=== PATIENT | male | born 1950 | race Caucasian/White ===

== ENCOUNTER 2017-09-18 05:07 | Day surgery (SDC) | payer MEDICARE ==
[2017-09-16 10:13] LABS: BASOPHILS % (AUTO) 0.4 % (0-1); EOSINOPHILS # (AUTO) 0.2 X10'3 (0-0.9); EOSINOPHILS % (AUTO) 2.1 % (0-6); HEMATOCRIT 40.9 % (42.0-52.0); HEMOGLOBIN 13.7 g/dl (14.0-17.9); LYMPHOCYTES # (AUTO) 2.2 X10'3 (1.1-4.8); LYMPHOCYTES % (AUTO) 24.3 % (21-51); MEAN CORPUSCULAR HEMOGLOBIN 29.8 PG (27.0-31.0); MEAN CORPUSCULAR HGB CONC 33.5 % (33.0-36.5); MEAN PLATELET VOLUME 8.9 FL (7.4-10.4); MONOCYTES # (AUTO) 0.6 X10'3 (0-0.9); MONOCYTES % (AUTO) 6.2 % (2-12); PLATELET COUNT 180 X10'3 (140-440); RED CELL DISTRIBUTION WIDTH 13.7 % (11.5-14.5)
[2017-09-16 10:23] LABS: ALBUMIN 3.7 G/DL (3.4-5.0); ANION GAP 8 (8-16); BLOOD UREA NITROGEN 13 MG/DL (7-18); CALCIUM 8.9 MG/DL (8.5-10.1); CHLORIDE 106 MMOL/L (99-107); GLUCOSE 105 MG/DL (70-104); POTASSIUM 4.3 MMOL/L (3.5-5.1); SODIUM 142 MMOL/L (135-145); TOTAL CARBON DIOXIDE 28.5 MMOL/L (24-32); eGFR 75 ML/MIN
[2017-09-16 10:24] LABS: PARTIAL THROMBOPLASTIN TIME 28 SECONDS (22-32); PROTHROMBIN TIME 10.7 SECONDS (9.0-12.0)
[~2017-09-18] VITALS: Ht 188 cm; Wt 136.4 kg
[2017-09-18] VITALS (11 sets, daily range): BP systolic 96–128; BP diastolic 44–67
[2017-09-18] MEDS ORDERED: normal saline 1000ml 1,000 ML IV ONE (05:30)
[2017-09-18] MEDS ORDERED: LORazepam 0.5 MG tablet PO ONE (05:35)
[2017-09-18] MEDS ORDERED: diphenhydrAMINE 25mg capsule PO ONE (05:35)
[2017-09-18] MEDS ORDERED: PRAV40TA3 PO (05:58)
[2017-09-18] MEDS ORDERED: LANS30CA56 PO (05:58)
[2017-09-18] MEDS ORDERED: ASPI81TA52 PO (05:58)
[2017-09-18] MEDS ORDERED: DOXA1TAB2 PO (05:58)
[2017-09-18] MEDS ORDERED: LISI40TA4 PO (05:58)
[2017-09-18] MEDS ORDERED: midazolam 2 mg/2 ml injection ONE (06:00)
[2017-09-18] MEDS ORDERED: fentaNYL/PF 50MCG/1 ML 2ML syringe ONE (06:00)
[2017-09-18] MEDS ORDERED: LIDOcaine 1%/PF (10mg/ml) 5ml vial ONE (06:01)
[2017-09-18] MEDS ORDERED: iohexol 350MG/ML 100ml bottle IV ONE (06:01)
[2017-09-18] MEDS ORDERED: proCHLORperazine 10 MG/2 ml inj IV PRN (08:25)
[2017-09-18] MEDS ORDERED: OXAZEpam 15mg capsule PO PRN (08:25)
[2017-09-18] MEDS ORDERED: ondansetron/PF 4mg/2ml inj IV PRN (08:25)
== END 2017-09-18 10:30 | disposition home or self-care (01) ==
LOC: SSTAY O 05:07
PROVIDERS: ATTEND Internal Medicine Interventional Cardiology
DX: I25.10 Atherosclerotic heart disease of native coronary artery without angina pectoris (principal); I10 Essential (primary) hypertension; E66.9 Obesity, unspecified; G47.10 Hypersomnia, unspecified; E78.4 Other hyperlipidemia; I65.23 Occlusion and stenosis of bilateral carotid arteries; F17.220 Nicotine dependence, chewing tobacco, uncomplicated; Z82.49 Family history of ischemic heart disease and other diseases of the circulatory system; Z79.82 Long term (current) use of aspirin; Z68.38 Body mass index [BMI] 38.0-38.9, adult
CPT/HCPCS: 36415; 80048; 85025; 85610; 85730; 93458; 99152; A6257; C1769; J1644; J2001; J2250; J3010; J7030; Q0163; Q9967; A4620

== ENCOUNTER 2021-12-26 14:27 | Day surgery (SDC) | payer MEDICARE ==
[2021-12-21 10:17] LABS: ALBUMIN 3.4 G/DL (3.4-5.0); ANION GAP 6 (8-16); BLOOD UREA NITROGEN 13 MG/DL (7-18); BUN/CREATININE RATIO 14.6 (5.4-32.0); CALCIUM 8.9 MG/DL (8.5-10.1); CHLORIDE 104 MMOL/L (99-107); CREATININE 0.89 MG/DL (0.60-1.10); GLUCOSE 92 MG/DL (70-104); POTASSIUM 4.2 MMOL/L (3.5-5.1); SODIUM 139 MMOL/L (135-145); eGFR 84 ML/MIN
[2021-12-21 10:20] LABS: APTT 30 SECONDS (22-32)
[2021-12-21 10:26] LABS: BASOPHILS # (AUTO) 0.1 X10'3 (0-0.2); BASOPHILS % (AUTO) 0.7 % (0-1); EOSINOPHILS # (AUTO) 0.2 X10'3 (0-0.9); EOSINOPHILS % (AUTO) 1.7 % (0-6); HEMATOCRIT 41.5 % (42.0-52.0); LYMPHOCYTES # (AUTO) 2.6 X10'3 (1.1-4.8); LYMPHOCYTES % (AUTO) 26.8 % (21-51); MEAN CORPUSCULAR HGB CONC 33.7 g/dL (33.0-36.5); MEAN CORPUSCULAR VOLUME 88.9 FL (78-98); MEAN PLATELET VOLUME 9.8 FL (7.4-10.4); MONOCYTES # (AUTO) 0.7 X10'3 (0-0.9); MONOCYTES % (AUTO) 7.1 % (2-12); NEUTROPHILS # (AUTO) 6.2 X10'3 (1.8-7.7); NEUTROPHILS % (AUTO) 63.7 % (42-75); PLATELET COUNT 184 X10'3 (140-440); RED BLOOD COUNT 4.67 X10'6 (4.70-6.10); RED CELL DISTRIBUTION WIDTH 14.1 % (11.5-14.5); WHITE BLOOD COUNT 9.8 X10'3 (4.5-11.0)
[2021-12-26] VITALS (12 sets, daily range): BP systolic 102–142; BP diastolic 42–77
[~2021-12-26] VITALS: Ht 188 cm; Wt 140.6 kg
[~2021-12-26 14:27] MED LIST: ASPI81TA52 PO; DOXA1TAB2 PO; LANS30CA56 PO; LISI40TA13 PO; PRAV40TA3 PO
[2021-12-26] MEDS ORDERED: LIDOcaine/PRILOcaine 5gm cream TP ONE (14:35)
[2021-12-26] MEDS ORDERED: LORazepam 0.5 MG tablet PO PRN (14:45)
[2021-12-26] MEDS ORDERED: diphenhydrAMINE 25mg capsule PO PRN (14:45)
[2021-12-26] MEDS ORDERED: normal saline 1,000 ML IV SCH (14:45)
[2021-12-26] MEDS ORDERED: ROSU40TA PO (14:46)
[2021-12-26] MEDS ORDERED: fentaNYL/PF 50MCG/1 ML 2ML syringe ONE (14:52)
[2021-12-26] MEDS ORDERED: nitroGLYCERIN-Tridil 50MG/D5W 250 ML IV ONE (14:52)
[2021-12-26] MEDS ORDERED: heparin 1,000unit/ml 10ml vial 10 ML ONE (14:52)
[2021-12-26] MEDS ORDERED: verapamil 2.5 mg/ml inj IV ONE (14:52)
[2021-12-26] MEDS ORDERED: iohexol 350MG/ML 100ml bottle IV ONE (14:52)
[2021-12-26] MEDS ORDERED: LIDOcaine 1% (10mg/ml)w/preservative inj. 20ml MDV ONE (14:52)
[2021-12-26] MEDS ORDERED: midazolam 1 mg/ML 2ml injection ONE (14:52)
[2021-12-26] MEDS ORDERED: ondansetron/PF 4mg/2ml inj IV PRN (16:00)
[2021-12-26] MEDS ORDERED: OXAZEpam 15mg capsule PO PRN (16:05)
[2021-12-26] MEDS ORDERED: HYDROcodone/acetaminophen 10/325mg tab PO PRN (16:05)
[2021-12-26] MEDS ORDERED: HYDROcodone/acetaminophen 5mg/325mg tablet PO PRN (16:05)
[2021-12-26] MEDS ORDERED: proCHLORperazine 10 MG/2 ml inj IV PRN (16:05)
--- NOTE | 2021-12-26 18:00 | NUR ---
Vasc band completely deflated and removed. No bleeding, bruising, oozing or hematoma noted at site. Pt and inspected site, instructed on radial site care and what to watch out for. Right radial puncture site cleaned and dressed with 2x2 and opsite, the stacked 2x2's and coban applied. Written and verbal DC instructions given to pt and , verbalize understanding. PIV DC cath intact. VSS. assisted pt to get dressed, steady on feet.
--- NOTE | 2021-12-26 18:05 | NUR ---
DC to home with . Transferred to private car via WC, pt able to transfer self to car, gait steady. Right radial site remains stable upon DC.
== END 2021-12-26 18:05 | disposition home or self-care (01) ==
LOC: SSTAY O 14:27
PROVIDERS: ATTEND Internal Medicine Interventional Cardiology
DX: R94.39 Abnormal result of other cardiovascular function study (principal); R07.89 Other chest pain; I25.118 Atherosclerotic heart disease of native coronary artery with other forms of angina pectoris; G47.33 Obstructive sleep apnea (adult) (pediatric); I10 Essential (primary) hypertension; I65.23 Occlusion and stenosis of bilateral carotid arteries; E78.5 Hyperlipidemia, unspecified; F17.210 Nicotine dependence, cigarettes, uncomplicated; Z79.82 Long term (current) use of aspirin; Z79.899 Other long term (current) drug therapy
CPT/HCPCS: 36415; 80048; 85025; 85610; 85730; 93005; 93458; 99152; C1769; C1894; J1644; J2250; J3010; J3490; J7030; Q0163; Q9967; 99153; A4620; A5120

== ENCOUNTER 2023-02-13 10:49 | Outpatient (CLI) | payer MEDICARE ==
[~2023-02-13 10:49] MED LIST changes: -PRAV40TA3 PO; +ROSU40TA PO
== END 2023-02-13 23:59 | disposition home or self-care (01) ==
LOC: VAS 10:49
PROVIDERS: ATTEND Pediatrics Sports Medicine
DX: M47.816 Spondylosis without myelopathy or radiculopathy, lumbar region (principal); M51.37 Other intervertebral disc degeneration, lumbosacral region; M54.41 Lumbago with sciatica, right side; M25.561 Pain in right knee; M79.89 Other specified soft tissue disorders
CPT/HCPCS: 93971

== ENCOUNTER 2023-04-18 14:17 | Outpatient (CLI) | payer MEDICARE | END 2023-04-18 23:59 | disposition home or self-care (01) | LOC: VAS 14:17 | PROVIDERS: ATTEND Internal Medicine | DX: M79.605 Pain in left leg (principal); M79.604 Pain in right leg | CPT/HCPCS: 93970 ==

== ENCOUNTER 2025-08-17 10:40 | Day surgery (SDC) | payer MEDICARE, OTHER ==
[2025-08-13 08:37] LABS: MEAN PLATELET VOLUME 9.0 FL (7.4-10.4); RED CELL DISTRIBUTION WIDTH 14.6 % (11.5-14.5)
[2025-08-13 08:47] LABS: APTT 31 SECONDS (22-32); INR 1.1 INR
[2025-08-13 08:48] LABS: CHOL/HDL RATIO 2.1 (0.00-4.99); CREATININE 1.06 MG/DL (0.60-1.10); LDL CHOLESTEROL 34 MG/DL (50-100); TOTAL CARBON DIOXIDE 30.8 MMOL/L (24-32); eGFR 68 ML/MIN
[~2025-08-17] VITALS: Ht 188 cm; Wt 117.5 kg
[~2025-08-17 10:40] MED LIST changes: +APIX5TAB3 PO; -LISI40TA13 PO; +LISI40TA20 PO; +SOTA80TA73 PO
[2025-08-17] MEDS ORDERED: normal saline 1000ml 1,000 ML IV SCH (11:00)
[2025-08-17] MEDS ORDERED: fentaNYL/PF 50MCG/1 ML 2ML syringe IV ONE (11:00)
[2025-08-17] MEDS ORDERED: MIDAZolam 1mg/ml 10ml vial IV ONE (11:00)
[2025-08-17] MEDS ORDERED: DOXA4TAB94 PO (11:40)
[2025-08-17] MEDS ORDERED: ATRNS BOTHNARES (11:40)
[2025-08-17] MEDS ORDERED: AMLO1TAB14 PO (11:40)
[2025-08-17] MEDS ORDERED: MAGN400C PO (11:40)
[2025-08-17] MEDS ORDERED: TIRZ7.5P3 SUBCUT (11:40)
[2025-08-17 11:45] VITALS: BP 110/69; PULSE 73; RESP 16; TEMP 97.8; O2SAT 97
[2025-08-17 11:55] VITALS: RESP 16; O2SAT 97
[2025-08-17] MEDS ORDERED: midazolam 1 mg/ML 2ml injection ONE ×2 (13:11→13:34)
[2025-08-17] MEDS ORDERED: fentaNYL/PF 50MCG/1 ML 2ML syringe ONE (13:11)
[2025-08-17] MEDS ORDERED: atropine 0.1mg/ml 10ml syringe ONE (13:11)
[2025-08-17 13:53] VITALS: BP 102/69; PULSE 54; RESP 10; O2SAT 94
--- NOTE | 2025-08-17 13:56 | ELECTROCARDIOGRAPH REPORT ---
[facility] Test Date: 2025-08-17 Test Time: 13:51:57 Pat Name: DANICA MAURICE Department: [facility] Patient ID: [id number] Room: Gender: M Director Banking: FRANCESCA : 1950 Requested By: AALIYAH ROLLINS Order Number: [id number] Reading MD: Dr. IRINA Davis Measurements Intervals Lindsay Rate: 49 P: 55 WA: 214 QRS: 81 QRSD: 106 T: 32 QT: 464 QTc: 419 Interpretive Statements Sinus bradycardia Borderline right axis deviation Low voltage, precordial leads Electronically Signed On 08-17-2025 18:50:[address] IRINA Davis Please click the below link to view image of tracing.
[2025-08-17 14:00] VITALS: BP 103/63; PULSE 51; RESP 10; O2SAT 92
[2025-08-17 14:15] VITALS: BP 99/60; PULSE 52; RESP 8; O2SAT 95
[2025-08-17 14:31] VITALS: BP 99/66; PULSE 50; RESP 12; O2SAT 95
== END 2025-08-17 14:38 | disposition home or self-care (01) ==
LOC: SSTAY O 10:40
PROVIDERS: ATTEND Student in an Organized Health Care Education/Training Program
DX: I48.91 Unspecified atrial fibrillation (principal); I10 Essential (primary) hypertension; I25.10 Atherosclerotic heart disease of native coronary artery without angina pectoris; E78.00 Pure hypercholesterolemia, unspecified; G47.33 Obstructive sleep apnea (adult) (pediatric); Z79.01 Long term (current) use of anticoagulants; Z79.899 Other long term (current) drug therapy
CPT/HCPCS: 36415; 80048; 80061; 85025; 85610; 85730; 92960; 93005; J2250; J3010; J7030; Z7610; 99152; J0461